=== PATIENT | male | born 1980 | race Caucasian/White ===

== ENCOUNTER 2017-08-27 11:54 | Emergency (ER) | payer SELFPAY ==
[2017-08-27] MEDS ORDERED: LIDOCAINE 2% VISCOUS SOLN 20 ML UDCUP PO ONE (13:00)
[2017-08-27] MEDS ORDERED: CIPROFLOXACIN HCL/DEXAMETH OTIC DROP 7.5 ML AS ONE (13:00)
--- NOTE | 2017-08-27 13:06 | ER Document Report ---
ED ENT - General Chief Complaint: Ear Pain Stated Complaint: EAR PAIN Time Seen by Provider: 08/27/17 12:43 Mode of Arrival: Ambulatory Information source: Patient Notes: 37-year-old male presents to ED for complaint of pain in his left ear for 3 or 4 days. He states he does not remember any trauma injury or drainage. But he does remember trying to clean his ears with Q-tips and coming out with blood on his Q-tip several days ago. He does have signs and symptoms of a cold cough congestion and runny nose. Respirations are regular unlabored patient. Patient is alert oriented speaks in full sentences walks with a even steady gait. TRAVEL OUTSIDE OF THE [place] IN LAST 30 DAYS: No - HPI Patient complains to provider of: Ear problem Onset: Other - 3 or 4 days Onset/Duration: Intermittent Quality of pain: Stabbing Severity: Moderate Pain Level: 3 Context: Recent Illness Location of pain: Ears, Nose, Sinus Associated symptoms: Ear pain, Runny nose, Sinus pain, Sinus drainage Similar symptoms previously: Yes Recently seen / treated by doctor: No - Related Data Allergies/Adverse Reactions: No Known Allergies Allergy (Verified 08/27/17 11:56) Home Medications: no at home medications Past Medical History - General Information source: Patient - Social History Smoking Status: Current Every Day Smoker Cigarette use (# per day): Yes Smoking Education Provided: Yes - 4 minutes Frequency of alcohol use: Heavy Drug Abuse: Marijuana Lives with: Family Family History: Reviewed & Not Pertinent Patient has suicidal ideation: No Patient has homicidal ideation: No - Past Medical History Cardiac Medical History: Reports: None Pulmonary Medical History: Reports: None EENT Medical History: Reports: None Neurological Medical History: Reports: None Endocrine Medical History: Reports: None Renal/ Medical History: Reports: None Malignancy Medical History: Reports None GI Medical History: Reports: None Musculoskeltal Medical History: Reports None Skin Medical History: Reports None Psychiatric Medical History: Reports: None Traumatic Medical History: Reports: None Infectious Medical History: Reports: None Surgical Hx: Negative Past Surgical History: Reports: None Review of Systems - Review of Systems Constitutional: Recent illness EENT: Ear pain, Nose congestion, Nose discharge, Sinus pressure Cardiovascular: No symptoms reported Respiratory: No symptoms reported Gastrointestinal: No symptoms reported Genitourinary: No symptoms reported Male Genitourinary: No symptoms reported Musculoskeletal: No symptoms reported Skin: No symptoms reported Hematologic/Lymphatic: No symptoms reported Neurological/Psychological: No symptoms reported -: Yes All other systems reviewed and negative Physical Exam - Vital signs Vitals: Temp Pulse Resp BP Pulse Ox 98.1 F 85 18 144/80 H 95 08/27/17 11:58 08/27/17 11:58 08/27/17 11:58 08/27/17 11:58 08/27/17 11:58 Interpretation: Normal - General General appearance: Appears well, Alert - HEENT Head: Normocephalic, Atraumatic Eyes: Normal Pupils: PERRL Ears: Normal External canal: Other - Scabbed slightly swollen area to the lateral aspect external canal close to the tympanic membrane no rupture noted Tympanic membrane: Normal Sinus: Normal Nasal: Purulent discharge, Swelling Mouth/Lips: Normal Mucous membranes: Normal Pharynx: Post nasal drainage Neck: Normal - Respiratory Respiratory status: No respiratory distress Chest status: Nontender Breath sounds: Normal Chest palpation: Normal - Cardiovascular Rhythm: Regular Heart sounds: Normal auscultation Murmur: No - Abdominal Inspection: Normal Distension: No distension Bowel sounds: Normal Tenderness: Nontender Organomegaly: No organomegaly - Back Back: Normal, Nontender - Extremities General upper extremity: Normal inspection, Nontender, Normal color, Normal ROM , Normal temperature General lower extremity: Normal inspection, Nontender, Normal color, Normal ROM , Normal temperature, Normal weight bearing. No: Natalia's sign - Neurological Neuro grossly intact: Yes Cognition: Normal Orientation: AAOx4 [place] Coma Scale Eye Opening: Spontaneous [place] Coma Scale Verbal: Oriented Rg Coma Scale Motor: Obeys Commands Rg Coma Scale Total: 15 Speech: Normal Motor strength normal: LUE, RUE, LLE, RLE Sensory: Normal - Psychological Associated symptoms: Normal affect, Normal mood - Skin Skin Temperature: Warm Skin Moisture: Dry Skin Color: Normal Course - Re-evaluation Re-evalutation: 08/27/17 14:40 Patient was treated with Ciprodex for his injury to the ear canal and viscous lidocaine for the pain to the ear. Patient was discharged home with instructions to follow-up with ENT. - Vital Signs Vital signs: Temp Pulse Resp BP Pulse Ox 98.2 F 71 14 127/71 H 100 08/27/17 13:24 08/27/17 13:24 08/27/17 13:24 08/27/17 13:24 08/27/17 13:24 Discharge - Discharge Clinical Impression: Injury to left ear canal from Q-tip Condition: Stable Disposition: HOME, SELF-CARE Additional Instructions: He was seen today for left ear pain with an upper respiratory infection. You have what looks to be a scratch with a scab on it on your left ear canal. I am treating you with Ciprodex drops for the antibiotic and viscous lidocaine for the ear pain. The Ciprodex she placed 3 drops in your ear twice a day, the lidocaine use quite a small amount to the area that is painful trying not to touch the actual ear canal with the tip of the syringe for the pain. You could also use Tylenol or Motrin for the pain. Acetaminophen Acetaminophen may be taken for pain relief or fever control. It's much safer than aspirin, offering a wider range of "safe" dosages. It is safe during . Some brand names are Tylenol, Panadol, Datril, Anacin 3, Tempra, and Liquiprin. Acetaminophen can be repeated every four hours. The following are maximum recommended dosages: WEIGHT Dose Drops Elixir Chewable( 80mg) (LBS.) drprs=droppers tsp=teaspoon 6 40 mg .4 ml (1/2) 6-11 80 mg .8 ml (full) 1/2 tsp 1 tab 12-16 120 mg 1 1/2 drprs 3/4 tsp 1 1/2 tabs 17-23 160 mg 2 drprs 1 tsp 2 tabs 24-30 240 mg 3 drprs 1 1/2 tsp 3 tabs 30-35 320 mg 2 tsp 4 tabs 36-41 360 mg 2 1/4 tsp 4 1 /2 tabs 42-47 400 mg 2 1/2 tsp 5 tabs 48-53 480 mg 3 tsp 6 tabs 54-59 520 mg 3 1/4 tsp 6 1 /2 tabs 60-64 560 mg 3 1/2 tsp 7 tabs 65-70 600 mg 3 3/4 tsp 7 1 /2 tabs 71-76 640 mg 4 tsp 8 tabs 77-82 720 mg 4 1/2 tsp 9 tabs 83-88 800 mg 5 tsp 10 tabs >89 pounds or adults 650 mg to 900 mg Acetaminophen can be repeated every four hours. Maximum daily dose not to exceed 4000 mg. These maximum recommended dosages are slightly higher than the dosages written on the product container, but these dosages are very safe and well below the toxic dosage for acetaminophen. FOLLOW-UP CARE: If you have been referred to a physician for follow-up care, call the physician s office for an appointment as you were instructed or within the next two days. If you experience worsening or a significant change in your symptoms, notify the physician immediately or return to the Emergency Department at any time for re-evaluation. Forms: Elevated Blood Pressure, Smoking Cessation Education, Return to Work Referrals: IGOR MANNING DO [ASSOCIATE] - Follow up as needed
[2017-08-27 13:28] VITALS: BP 127/71
== END 2017-08-27 13:28 | disposition home or self-care (01) ==
LOC: ER 11:54
DX: S09.91XA Unspecified injury of ear, initial encounter (principal); H92.02 Otalgia, left ear; R05 Cough; R09.81 Nasal congestion; R09.89 Other specified symptoms and signs involving the circulatory and respiratory systems; W45.8XXA Other foreign body or object entering through skin, initial encounter; Y93.E8 Activity, other personal hygiene; F17.210 Nicotine dependence, cigarettes, uncomplicated; Z79.899 Other long term (current) drug therapy
CPT/HCPCS: 99406; 99282; J3490 ×2